=== PATIENT | male | born 1990 | race African-American/Black ===

== ENCOUNTER 2017-02-26 12:30 | Emergency (ER) | payer SELFPAY ==
--- NOTE | 2017-02-26 14:40 | ER Document Report ---
ED General - General Chief Complaint: Ear Pain Stated Complaint: EAR PAIN Time Seen by Provider: 02/26/17 14:16 Mode of Arrival: Ambulatory TRAVEL OUTSIDE OF THE [place] IN LAST 30 DAYS: No - HPI Notes: 26-year-old male presents today with complaints of bilateral ear pain for approximately 10 days. Denies any fevers or chills. Eating and drinking without issues. Pain 4/10, achy and constant. Denies any rashes. Tried otc cold medications without relief. denies fevers and chills. Eating and drinking ok. Worse when laying flat, better when upright. Vaccinations are UTD. Denies any chest pain, shortness of breath, nausea, vomiting, diarrhea, abdominal pain, dysuria, lightheadedness, dizziness, blurred vision, double vision, loss of vision. . - Related Data Allergies/Adverse Reactions: No Known Allergies Allergy (Verified 02/26/17 14:40) Past Medical History - General Information source: Patient - Social History Smoking Status: Unknown if Ever Smoked Family History: Reviewed & Not Pertinent Pulmonary Medical History: Reports: Hx Asthma, Hx Pneumonia - Immunizations Hx Diphtheria, Pertussis, Tetanus Vaccination: Yes Review of Systems - Review of Systems Constitutional: No symptoms reported EENT: See HPI Cardiovascular: No symptoms reported Respiratory: No symptoms reported Gastrointestinal: No symptoms reported Genitourinary: No symptoms reported Male Genitourinary: No symptoms reported Musculoskeletal: No symptoms reported Skin: No symptoms reported Hematologic/Lymphatic: No symptoms reported Neurological/Psychological: No symptoms reported Physical Exam - Vital signs Vitals: Temp Pulse Resp BP Pulse Ox 98.6 F 103 H 17 147/87 H 97 02/26/17 13:16 02/26/17 13:16 02/26/17 13:16 02/26/17 13:16 02/26/17 13:16 - Notes Notes: PHYSICAL EXAMINATION: GENERAL: Well-appearing, well-nourished and in no acute distress. HEAD: Atraumatic, normocephalic. EYES: Pupils equal round and reactive to light, extraocular movements intact, sclera anicteric, conjunctiva are normal. ENT: TM with effusion, intact, bulging. no erythema. bilateral turbinates with swelling. pharynx without erythema or exudate. no lymphadenopathy. noted nasal congestion and rhinorrhea. No swelling no erythema no exudate no angioedema no drooling no trismus bilateral arches equal. Uvula midline NECK: Normal range of motion, supple without lymphadenopathy LUNGS: Breath sounds clear to auscultation bilaterally and equal. No wheezes rales or rhonchi. HEART: Regular rate and rhythm without murmurs ABDOMEN: Soft, nontender, nondistended abdomen. No guarding, no rebound. No masses appreciated. Musculoskeletal: Normal range of motion, no pitting or edema. No cyanosis. NEUROLOGICAL: Cranial nerves grossly intact. Normal speech, normal gait. Normal sensory, motor exams PSYCH: Normal mood, normal affect. SKIN: Warm, Dry, normal turgor, no rashes or lesions noted. Course - Re-evaluation Re-evalutation: 02/26/17 14:39 advised to return to the ER if any signs or symptoms became worse. OTC loratadine, and use Flonase. Advised to buy an OTC decongestant. Suck on cough drops or diarrhea ensures to help with postnasal drip cough. Take over- the-counter Motrin and Tylenol as needed for any fevers or pain. Follow up with primary care within 1-2 days. All questions and concerns answered by this provider. Patient/family states would follow plan of care and agreed to plan of care. Patient was discharged home and off unit without incident. Please excuse any errors in this document was done by dragon dictation. - Vital Signs Vital signs: Temp Pulse Resp BP Pulse Ox 98.0 F 87 17 139/82 H 97 02/26/17 14:49 02/26/17 14:49 02/26/17 13:16 02/26/17 14:49 02/26/17 14:49 Discharge - Discharge Clinical Impression: Chronic otitis media with effusion, bilateral, URI, acute Condition: Good Disposition: HOME, SELF-CARE Additional Instructions: Antihistamines An antihistamine has been prescribed to control your symptoms. Antihistamines are used for many reasons, including itching, watering eyes, runny nose, allergic swelling, hives, and insect stings. Antihistamines may cause drowsiness, especially with the first dose. Do not operate machinery or drive while under the effects of the medication. Other common side effects include dry mouth and eyes. In older persons, antihistamines can occasionally cause urinary retention, constipation, and trouble focusing the eyes. Do not combine the medication with alcohol, or with any other medication without talking to your doctor. Prescriptions: Fluticasone Propionate [Flonase Nasal [place] 50 Mcg/[place] 16 gm] 1 spray NASL Q12 #1 inhaler Loratadine 10 mg PO DAILY #30 tablet Forms: Return to Work
[2017-02-26 14:51] VITALS: BP 139/82
== END 2017-02-26 14:50 | disposition home or self-care (01) ==
LOC: ER 12:30
DX: H65.493 Other chronic nonsuppurative otitis media, bilateral (principal); J06.9 Acute upper respiratory infection, unspecified; H92.03 Otalgia, bilateral
CPT/HCPCS: 99282